=== PATIENT | female | born 1985 | race American Indian/Alaskan Native ===

== ENCOUNTER 2017-03-15 12:46 | Outpatient (CLI) | payer OTHER ==
--- NOTE | 2017-03-15 14:45 | Mammography Report ---
BILATERAL DIGITAL DIAGNOSTIC MAMMOGRAM with CAD and RIGHT BREAST ULTRASOUND: 03/15/17 CLINICAL: Right palpable breast lump. COMPARISON:None available. FINDINGS: The breasts are heterogeneously dense, which may obscures small masses. A right outer biopsy clip.No mass, suspicious architectural distortion or suspicious calcifications . No mammographic finding is identified at a palpable marker at the right inframammary fold. Ultrasound of the right breast was performed in the vicinity of a palpable skin lesion at 7 o'clock in the inframammary fold. It demonstrates a heterogeneous hypoechoic lesion within the skin measuring 7 x 4 x 5 mm. It demonstrates posterior enhancement. The skin is slightly thickened at the lesion. IMPRESSION: A benign 7 mm sebaceous cyst at the right inframammary fold. Otherwise negative studies. BI-RADS CATEGORY: 2 -- Benign RECOMMENDATION: Clinical follow-up and routine mammographic screening based on ACS guidelines. ACR BI-RADS MAMMOGRAPHIC CODES: 0 = Needs additional imaging evaluation; 1 = Negative; 2 = Benign; 3 = Probably benign; 4 = Suspicious; 5 = Malignant; 6 = Known biopsy-proven malignancy COMMENT: 1. Dense breast tissue, i.e., adenosis, fibrocystic changes, etc., may obscure an underlying neoplasm. 2. Approximately 10% of cancers are not detected with mammography. 3. A negative mammography report should not delay biopsy if a clinically suspicious mass is present. COMMENT: Patient follow-up letters are generated by our [employer] application.
== END 2017-03-15 12:47 | disposition home or self-care (01) ==
LOC: SPVWC 12:46
PROVIDERS: ATTEND Family Medicine
DX: N60.81 Other benign mammary dysplasias of right breast (principal); N63 Unspecified lump in breast; N64.89 Other specified disorders of breast
CPT/HCPCS: 76642; G0204; 77066

== ENCOUNTER 2021-07-01 07:49 | Observation (INO) | payer BC, OTHER ==
[2021-06-29 10:52] LABS: Mean Corpuscular HGB Conc 30 % (30-34); Red Blood Count 5.19 M/mm3 (3.65-5.03)
[2021-06-29 11:02] LABS: Hemoglobin 10.1 gm/dl (10.1-14.3); Mean Corpuscular Volume 66 fl (79-97); Red Cell Distribution Width 36.2 % (13.2-15.2)
[2021-06-29 11:10] LABS: Blood Urea Nitrogen 11 mg/dL (7-17); Calcium 9.3 mg/dL (8.4-10.2); Hemolysis Index 7
[2021-06-29 11:14] LABS: BUN/Creatinine Ratio 22
[2021-06-29 14:29] LABS: Anisocytosis 3+; Hypochromasia 1+; Platelet Estimate Consistent w Auto; Total Cells Counted 100
[2021-06-29 14:41] LABS: Platelet Count 244 K/mm3 (140-440)
--- NOTE | 2021-06-29 15:36 | Anesthesia Consultation ---
Anesthesia Consult and Med Hx Date of service: 07/01/21 - Airway Anesthetic Teeth Evaluation: Good ROM Head & Neck: Adequate Mental/Hyoid Distance: Adequate Mallampati Class: Class I Intubation Access Assessment: Good - Pulmonary Exam CTA: Yes - Cardiac Exam Cardiac Exam: RRR - Pre-Operative Health Status ASA Pre-Surgery Classification: ASA1 Proposed Anesthetic Plan: General Nerve Block: TAP - Pulmonary Hx Smoking: No Hx Respiratory Symptoms: No - Cardiovascular System Hx Hypertension: No - Central Nervous System CVA: No - Endocrine Hx Renal Disease: No Hx Liver Disease: No Hx Insulin Dependent Diabetes: No Hx Non-Insulin Dependent Diabetes: No Hx Thyroid Disease: No - Hematic Hx Anemia: Yes (Fe infusions; no hx transfusions) - Other Systems Hx Obesity: No - Additional Comments Anesthesia Medical History Comments: No hx complications w/ GA.
--- NOTE | 2021-06-29 23:39 | History and Physical Report ---
History of Present Illness Date of examination: 06/28/21 Chief complaint: Patient has been reassessed/reevaluated. H&P has been reviewed. No interval changes. This is a 35 years old female who presents with complains of menorrhagia, metrorrhagia, dysmenorrhea, abnormal periods and pelvic pain, but denies abnormal pap smears, dyspareunia, post-coital bleeding, abnormal vaginal discharge, vaginal burning/irritation, vaginal itching, breast mass or lumps, depression, anxiety, urinary symptoms, chest pain, palpitations, shortness of breath, leg swelling, back pain, abdominal pain, headaches and bowel problems. The symptoms began 4-6 months ago. She complains of mid-cycle spotting, heavy bleeding, dysmenorrhea and clotting, but denies irregular menses, lack of menses, history of ovarian cysts, history of thyroid disease, history of fibroids, history of PCOS, history of bleeding disorder, lightheadedness, fatigu e and cramping. Menses started at age 12. Interval between menses is 28 days and 30 days. Menstrual flow lasts 5 days and 7 days. Patient reports that for pain she uses ibuprofen without resolution of her symptoms.Patient's work up has included a transvaginal ultrasound which revealed multiple myomas. Patient's symptoms when present disrupts her normal daily activities. Conservative therapies have failed. Patient desires definitive treatment ] Vital Signs: Patient Profile: 35 Years Old Female LMP: 05/13/2021 Height: 63 inches Weight: 140 pounds BMI: 24.80 Temp: 97.8 degrees F BP sittin / 70 (left arm) Menstrual History: LMP (date): 05/13/2021 LMP - Character: heavy Menarche: 12 Menses interval: 28-30 days Menstrual flow: 8 days On BCP's at conception: no Current Method of Contraception: BTL Date of Last Mammogram: 2017 Date of Last Pap Smear: 05/25/2021 Past History : 5 Term Births: 3 Premature Births: 0 Living Children: 3 Para: 3 Mult. Births: 0 Prev : 3 Aborta: 2 Elect. Ab: 0 Spont. Ab: 2 Ectopics: 0 Current Allergies (reviewed today): BACTRIM (Critical) Past Medical History: Chronic back pain Left arm numbness(2020) Anemia Past Surgical History: umbilical hernia (2019) Axillary sweat gland (2012) Left Breast Biopsy: (2009) Cervical Cerclage x 3 (2004,2006,2012) (2004) (2006) with Tubal Ligation (2012) Vaginal repair of cervical fistula due scarring from cercalges(2012) D&C:x2 Family History Summary: Other Family Member - Has No Family History of Ovarvian Cancer - Entered On: 06/13/2021 Other Family Member - Has No Family History of Colon Cancer - Entered On: 06/13/2021 Other Family Member - Has No Family History of Breast Cancer - Entered On: 06/13 Other Family Member - Has Family History of Hypertension - Entered On: 06/13/2021 Other Family Member - Has Family History of Diabetes - Entered On: 06/13/2021 Other Family Member - Has Family History of Coronary Heart Disease - Entered On: 06/13/2021 Social History: Marital Status: Children: 3 Occupation: [employer] Smoking History: Patient has never smoked. 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 Denies fever, chills, sweats, anorexia, weakness, malaise, weight loss and sleep disorder. Complains of menorrhagia, pelvic pain and painful periods. Denies vaginal discharge, incontinence, dysuria, hematuria, urinary frequency, amenorrhea, abnormal vaginal bleeding, genital sores, decreased libido, painful sex, urinary urgency, hot flashes, vaginal dryness, vaginal itching and vaginal odor. CV Denies chest pains, palpitations, syncope, dyspnea on exertion, orthopnea, PND and peripheral edema. Resp Denies cough, dyspnea at rest, excessive sputum, hemoptysis, wheezing and pleurisy. GI Denies nausea, vomiting, diarrhea, constipation, change in bowel habits, abdominal pain, melena, hematochezia, jaundice, gas/bloating, indigestion/heartburn, dysphagia and odynophagia. Breast Denies left breast lump, right breast lump, nipple discharge, bloody discharge from nipple, breast pain, abnormal mammogram and breast enlargement. Psych History of present illness: See chief complaint Past History Past Medical History: other (SEE HPI FOR DETAILS) Social history: full code, other (SEE HPI FOR DETAILS) Family history: other (SEE HPI FOR DETAILS) Medications and Allergies Allergies Allergy/AdvReac Type Severity Reaction Status Date / Time BACTRIM-MAKES HER FEEL CRAZY AdvReac Severe Hives Uncoded 06/24/21 12:55 Home Medications Medication Instructions Recorded Confirmed Last Taken Type Advil 11/ Tylenol 4 tab PO PRN 06/24/21 Unknown History Ascorbic Acid [Vitamin C] 1,000 mg PO QDAY 06/24/21 06/24/21 Unknown History Cetirizine HCl [Cetirizine 5mg tab] 5 mg PO DAILY 06/24/21 06/24/21 Unknown H istory Cholecalciferol (Vitamin D3) 50 mcg PO DAILY 06/24/21 06/24/21 Unknown History [Vitamin D3] Cyanocobalamin (Vitamin B-12) 5,000 mcg PO DAILY 06/24/21 06/24/21 Unknown History [Vitamin B12] Iron 325 mg PO DAILY 06/24/21 06/24/21 Unknown History Active Meds: Active Medications Acetaminophen (Acetaminophen 500 Mg Tab) 1,000 mg PO PREOP SHANTELL Fentanyl (Fentanyl 100 Mcg/2 Ml Inj) 100 mcg IV ONCE PRN PRN Reason: sedation for nerve block Gabapentin (Gabapentin 300 Mg Cap) 300 mg PO PREOP NR Stop: 07/01/21 11:01 Cefazolin Sodium (Ancef/Sterile Water 2 Gm/20 Ml) 2 gm in 20 mls @ 80 mls/hr IV PREOP NR; Protocol Stop: 07/01/21 20:00 Lactated Ringer's (Lactated Ringers) 1,000 mls @ 100 mls/hr IV DIRECT SHANTELL Stop: 07/01/21 23:59 Midazolam HCl (Midazolam 2 Mg/2 Ml Inj) 2 mg IV PREOP NR Stop: 07/01/21 23:00 Scopolamine (Scopolamine Transdermal Patch 72 Hr) 1 each TD PREOP NR Stop: 07/01/21 23:00 Review of Systems Constitutional: other (SEE HPI FOR DETAILS) Exam - Physical Exam Narrative exam: HEENT: normocephalic, no lesions or deformities Skin no significant abnormal lesions or rashes Chest: respiratory effort normal, clear to auscultation Breasts: skin/areolae normal, no masses, no nipple discharge, no erythema/warm th/tenderness, and axillae normal. CV: regular, normal S1-S2, no murmur, no rub, no gallop Abdomen: normal bowel sounds, soft, nontender, no HSM Well healed pfannenstiel scar Neuro: no gross anomalities Extremities: no clubbing, cyanosis, or edema [employer]TER [employer] Exams Vulva/Vagina: No lesions, normal BUS, normal rugae Cervix: No lesions; no cervical motion tenderness Uterus: enlarged uterus 14 -16 weeks in size Adnexae: no masses or tenderness Rectovaginal: exam defered - Constitutional Vitals: Temp Pulse Resp BP Pulse Ox 98.3 F 76 20 140/73 99 06/29/21 09:30 06/29/21 09:30 06/29/21 09:30 06/29/21 09:30 06/29/21 09:30 Results - Labs CBC & Chem 7: 06/29/21 09:35 06/29/21 09:35 Labs: Abnormal lab results 06/29/21 06/29/21 Range/Units 09:35 09:35 RBC 5.19 H (3.65-5.03) M/mm3 MCV 66 L (79-97) fl MCH 20 L (28-32) pg RDW 36.2 H (13.2-15.2) % Seg Neuts % (Manual) 71.0 H (40.0-70.0) % Creatinine 0.5 L (0.6-1.2) mg/dL Assessment and Plan - Patient Problems (1) Intramural leiomyoma of uterus Current Visit: No Status: Acute Plan to address problem: Diagnosis explained to patient . Questions answered. Discussed with patient various medical, surgical and radiological therapies common for treatment including expectant management, myomectomy hysterectomy and uterine artery embolization Patient desires definitive treatment Patient desires hysterectomy Discussed risks and benefits of laparotomy, laparoscopy, vaginal and robotic assisted approaches for hysterectomies Patient desires robotic assisted total hysterectomy. Consent reviewed and signed . The risks and alternatives for this surgery were reviewed with the patient. Discuss the risks of the surgery including infection, bleeding possibly heavy enough to require a blood transfusion, possible damage to bowel, bladder or ureter. Patient understand that this surgery with make her sterile.Patient understands if her ovaries are removed she will become menopausal. Also if unable to complete robitcally a laparotomy may be required. Patient understands her risks of adjacent organ damage is increased due to her previous surgery(ies) Patient understands and desires to proceed. (2) Menorrhagia Current Visit: No Status: Acute Qualifiers: Menorrhagia type: with regular cycle Qualified Code(s): N92.0 - Excessive and frequent menstruation with regular cycle Plan to address problem: Probably secondary to # 1 (3) Dysmenorrhea Current Visit: No Status: Acute Plan to address problem: Probably secondary to # 1 (4) Anemia Current Visit: No Status: Acute Qualifiers: Iron deficiency anemia type: chronic blood loss Plan to address problem: Probably secondary to # 2 (5) Refusal of blood transfusions as patient is Bahai Current Visit: Yes Status: Chronic
[~2021-07-01 07:49] MED LIST: ACETAMINOPHEN 500 MG TAB PO SCH; GABAPENTIN 300 MG CAP PO NR; LACTATED RINGERS 1,000 ML IV SCH; MIDAZOLAM 2 MG/2 ML INJ IV NR; SCOPOLAMINE TRANSDERMAL PATCH 72 HR TD NR; fentaNYL 100 MCG/2 ML INJ IV PRN
[2021-07-01] MEDS ORDERED: ROCURONIUM 50 MG/5 ML INJ IV ONE ×2 (09:35→13:19)
[2021-07-01] MEDS ORDERED: dexAMETHasone 20 MG/5 ML VIAL ONE (09:35)
[2021-07-01] MEDS ORDERED: LIDOCAINE MPF (2%) 20 MG/1 ML VIAL 5 ML ONE (09:35)
[2021-07-01] MEDS ORDERED: ONDANSETRON 4 MG/2 ML INJ ONE (09:35)
[2021-07-01] MEDS ORDERED: HYDROmorphone 1 MG/1 ML INJ ONE ×2 (09:36→13:02)
[2021-07-01] MEDS ORDERED: propofoL 200 MG/20 ML VIAL IV ONE (09:36)
[2021-07-01] MEDS ORDERED: fentaNYL 100 MCG/2 ML INJ ONE (09:36)
[2021-07-01] MEDS ORDERED: BUPIVACAINE/PF (0.25%) 2.5 MG/ML 30 ML VIAL INFILTRATI ONE (10:32)
[2021-07-01] MEDS ORDERED: dexAMETHasone 4 MG/ML VIAL ONE (10:32)
[2021-07-01] MEDS ORDERED: HYDROmorphone 1 MG/1 ML INJ IV PRN (10:51)
--- NOTE | 2021-07-01 10:51 | Anesthesia Day of Surgery ---
Anesthesia Day of Surgery - Day of Surgery Patient Examined: Yes Patient H&P Reviewed: Yes Patient is NPO: Yes
[2021-07-01] MEDS ORDERED: oxyCODONE /ACETAMINOPHEN 5-325MG TAB PO PRN (11:00)
[2021-07-01] MEDS ORDERED: ONDANSETRON 4 MG/2 ML INJ IV PRN (11:00)
[2021-07-01] MEDS ORDERED: NEOMY 40 MG/POLYMYXIN B 200,000 UNITS/ML (GU) AMPULE IR ONE ×2 (11:02→12:05)
[2021-07-01] MEDS ORDERED: CITRIC ACID-SOD CITRATE 500 ML IV ONE (11:47)
[2021-07-01] MEDS ORDERED: PHENYLEPHRINE/NS 1,000 MCG/10 ML SYRINGE (OR USE) IV ONE (11:57)
[2021-07-01] MEDS ORDERED: ceFAZolin/Water 2 GM/20 ML 2 GM/20 ML SYRINGE IV NR (12:00)
[2021-07-01] MEDS ORDERED: SODIUM CHLORIDE 0.9% IRR 1,500 ML BOTTLE IR ONE (12:05)
[2021-07-01] MEDS ORDERED: SODIUM CHLORIDE 0.9% IRRIG SOLN 2000 ML IR ONE (12:05)
[2021-07-01] MEDS ORDERED: CITRIC ACID-SOD CITRATE SOLN 500 ML IV SOLN IV ONE (12:06)
[2021-07-01] MEDS ORDERED: KETOROLAC 30 MG/1 ML INJ ONE (13:20)
[2021-07-01] MEDS ORDERED: NEOSTIGMINE 10MG/10 ML INJ MDV ONE (13:35)
[2021-07-01] MEDS ORDERED: GLYCOPYRROLATE 0.4 MG/2 ML INJ ONE (13:35)
--- NOTE | 2021-07-01 14:40 | Operative Report ---
Operative Report Operative Report: Date of procedure: July 01, 2021 Pre-operative diagnosis: Symptomatic leiomyomata with menorrhalgia pelvic pain, dysmenorrhea and anemia Post-operative diagnosis: Same plus pelvic adhesive disease Procedure name(s):Robotic Assisted Total Hysterectomy with bilateral salpingectomy with lysis of adhesions Surgeon: Dipesh Sheikh MD Direct Support Worker: Jana Hamm MD Anesthesia: General EBL: 50 cc Complications: None Findings: Patient had extensive omental adhesions to anterior abdominal wall in the fundus of the uterus. Patient also with adhesion between anterior uterus and bladder. Patient normal-appearing fallopian tubes bilaterally with both of them interrupted midportion had a normal-appearing right ovary and patient also had a left ovary with a approximately 3 centimeters cyst Specimen(s): Uterus with bilateral fallopian tubes along with cervix Procedure: Patient was brought to the operating room where general anesthesia was induced without difficulty. Patient was placed in the dorsal lithotomy position. Prepped and draped in the usual sterile manner for robotic procedure. Torres catheter was placed without difficulty. Speculum was placed in the vagina. A medium V-Care Uterine manipulator was placed without difficulty. Attention was now switched to the patient's abdomen. A vertical supra-umbilicus incision was made with a scalpel. A 10-12 trocar was placed in this incision under direct visualization. Intra-abdominal placement was verified with no evidence of internal organ damage. The patient was insufflated approximately 3-1/2 L of CO2 gas. She was placed in Trendelenburg position. The patient pelvic findings were noted as above. Patient with thick omental adhesions obscuring the patient's pelvic findings. On the left side of the umbilical incision at about 8 cm, incisions were made for robotic trocar. The robotic trocar was placed under direct visualization with no evidence of internal organ damage. One 5 mm trocar was placed 2 fingerbreadths above the right iliac crest. A 5 mm camera was placed in the right lower quadrant trocar, where the dense omental adhesions were better visualized. Using both the lower right quadrant camera port and the midportion camera port the adhesions were taken down laparoscopically clear meghann jovanni to place the right robotic trocar under direct visualization no evidence of internal organ damage. The 10-12 trocar was removed and a Ricky Barajas laparoscopic port closure device was placed through this incision under direct visualization with no evidence of internal organ damage. The camera was then replaced into this port. At this time the patient was placed in extreme Trendelenburg. The da Lucian robot was then docked on the patient's left side. The trocars connected to the robot appropriately robotic instruments were placed under direct visualization no evidence of internal organ damage.. At this time I took my place under the robotic operating rice. Further lysis of adhesions were performed with robotic scissors and bipolar instruments. The adhesions were then freed and the patient pelvic anatomy could be clearly seen. Starting on the patient's right side the ureter was identified and found to be out of the operative field. Using the robotic vessel sealer the mesosalpinx under the fallopian tube were cauterized and cut starting from the distal end. Utero- ovarian complex was then cauterized and cut. This was followed by cauterizing and cutting the right fallopian tube and right round ligament. The broad ligament was then opened. The bladder flap was formed anteriorly. The posterior broad ligament was then excised. The uterine vessels were skeletonized. The ureter was clearly seen out of the operative field. The bladder was pushed away from the anterior uterus. The right uterine vessels were then cauterized and cut. Attention was then switched to the patient's left side. The same procedure was repeated on the left side with perform the salpingectomy followed by isolating the uterine vessels cauterized and cutting and completing the bladder flap from the left side. At this time the uterus was appearing very cyanotic. After inspecting the bladder flap to insured no evidence of bladder injury, the colpotomy was then started. Incision started at 6:00 until the V-Care could be seen. This incision was extended from 6:00 to 9:00. Then from 6:00 to 3:00. Then from 9:00 to 12:00. This incision was extended from 3:00 to 12:00. At this time colpotomy was complete with no evidence of adjacent organ damage. The assistant auto center manager remove the uterus from through the colpotomy site. The vaginal cuff was irrigated and cauterized and found to be hemostatic. The cuff was closed with roboticly using 0 V- Lock suture. This closure was hemostatic after irrigation and Bovie. All pedicles were inspected and found to be hemostatic. The ureters were identified bilaterally and found to be functioning normal. The patient had clear urine in the Torres catheter with no evidence of mixture with blood. Surgicel powder was placed on the cuff and pedicles for postoperative hemostasis . All instruments were then removed. The large trocar sites were closed in layers 2-0 Vicryl and 4-0 Monocryl. The smaller incisions were closed subcuticularly with 4-0 Monocryl. Dermabond was placed over the skin incisions. The patient tolerated procedure well. She was awakened in the operating room and accompanied to the recovery room in good condition.
--- NOTE | 2021-07-01 15:58 | Post Anesthesia Evaluation ---
- Post Anesthesia Evaluation Patient Participated: Yes Airway Patent: Yes Stable Respiratory Function: Yes Nausea/Vomiting: No Temp > 96.8F: Yes Pain Manageable: Yes Adequeate Hydration: Yes Anesthesia Complications: No
[2021-07-01] MEDS ORDERED: ACETAMINOPHEN 325 MG TAB PO PRN (16:19)
--- NOTE | 2021-07-01 18:21 | Event Note ---
Date: 07/01/21 Day of surgery. Discuss operative findings with patient and questions answered. Patient without fever. Patient does complain of some dizziness, nausea and she has not voided postoperatively as of yet. We will ambulate in halls this evening. Monitor urine output. We will continue routine postoperative care.
[2021-07-01] MEDS: ceFAZolin/NS 1 GM/50 ML 1 GM/50 ML BAG IV SCH (20:35)
[2021-07-01] MEDS ORDERED: ACETAMINOPHEN 325 MG TAB PO SCH (20:41)
[2021-07-01] MEDS ORDERED: SIMETHICONE 80 MG CHEW TAB PO PRN (20:45)
[2021-07-01] MEDS: D5W/LACTATED RINGERS 1,000 ML IV SCH (21:19)
[2021-07-01] MEDS: HYDROcodone/ACETAMINOPHEN 5-325 MG TAB PO PRN (21:25)
[2021-07-01] MEDS ORDERED: SODIUM CHLORIDE P/F VIAL 10 ML 10 ML ONE (22:59)
[2021-07-01] MEDS ORDERED: SODIUM CHLORIDE 0.9% P/F 10 ML VIAL IV SCH (23:00)
[2021-07-01] MEDS: KETOROLAC 30 MG/1 ML INJ IV SCH (23:02)
[2021-07-01] MEDS: PANTOPRAZOLE 40 MG INJ IV SCH (23:03)
[2021-07-01] MEDS: DOCUSATE SODIUM 100 MG CAP PO SCH (23:04)
[2021-07-01] MEDS ORDERED: ACETAMINOPHEN 500 MG TAB PO SCH (23:45)
[2021-07-02] MEDS: HYDROcodone/ACETAMINOPHEN 5-325 MG TAB PO PRN ×2 (03:19→09:14)
[2021-07-02] MEDS: ceFAZolin/NS 1 GM/50 ML 1 GM/50 ML BAG IV SCH (04:45)
[2021-07-02] MEDS: D5W/LACTATED RINGERS 1,000 ML IV SCH (05:23)
[2021-07-02] MEDS: KETOROLAC 30 MG/1 ML INJ IV SCH (05:23)
[2021-07-02 05:30] LABS: Hematocrit 29.8 % (30.3-42.9); Hemoglobin 9.1 gm/dl (10.1-14.3)
[2021-07-02] MEDS: PANTOPRAZOLE 40 MG INJ IV SCH (09:14)
[2021-07-02] MEDS: DOCUSATE SODIUM 100 MG CAP PO SCH (09:14)
--- NOTE | 2021-07-02 11:17 | Short Stay Summary ---
Short Stay Documentation Date of service: 07/01/21 Narrative H&P: See dictated history and physical - History Principal diagnosis: Symptomatic leiomyomata with menorrhalgia pain and dysmenorrhea also anemia Past Medical History: other (SEE HPI FOR DETAILS) Social history: full code, other (SEE HPI FOR DETAILS) - Allergies and Medications Current Medications: Allergies BACTRIM-MAKES HER FEEL CRAZY Adverse Reaction (Severe, Uncoded 06/24/21 12:55) Hives NAUSEA & VOMITING Home Medications Medication Instructions Recorded Confirmed Last Taken Type Advil 11/ Tylenol 4 tab PO PRN 06/24/21 Unknown History Ascorbic Acid [Vitamin C] 1,000 mg PO QDAY 06/24/21 06/24/21 Unknown History Cetirizine HCl [Cetirizine 5mg tab] 5 mg PO DAILY 06/24/21 06/24/21 Unknown History Cholecalciferol (Vitamin D3) 50 mcg PO DAILY 06/24/21 06/24/21 Unknown History [Vitamin D3] Cyanocobalamin (Vitamin B-12) 5,000 mcg PO DAILY 06/24/21 06/24/21 Unknown History [Vitamin B12] Iron 325 mg PO DAILY 06/24/21 06/24/21 Unknown History Ferrous Sulfate [Feosol 325 MG tab] 325 mg PO BID #60 tablet 07/01/21 Unknown Rx Ibuprofen [Motrin] 800 mg PO TID PRN #30 tablet 07/01/21 Unknown Rx oxyCODONE /ACETAMINOPHEN [Percocet 1 - 2 tab PO Q6HR PRN #20 tablet 07/01/21 Unknown Rx 5/325 mg] Tolterodine (Nf) [Detrol LA] 4 mg PO QDAY #14 capsule 07/02/21 Unknown Rx Active Medications Acetaminophen (Acetaminophen 500 Mg Tab) 1,000 mg PO Q6H [facility] Stop: 07/02/21 17:46 Last Admin: 07/01/21 23:00 Dose: Not Given Documented by: Hydrocodone Bitart/Acetaminophen (Hydrocodone/Acetaminophen 5-325 Mg Tab) 2 each PO Q6H PRN PRN Reason: Pain, Moderate (4-6) Last Admin: 07/02/21 09:14 Dose: 2 each Documented by: Docusate Sodium (Docusate Sodium 100 Mg Cap) 100 mg PO BID SHANTELL Last Admin: 07/02/21 09:14 Dose: 100 mg Documented by: Dextrose/Lactated Ringer's ([email or web address]) 1,000 mls @ 125 mls/hr IV DIRECT [facility] Last Admin: 07/02/21 05:23 Dose: 125 mls/hr Documented by: Pantoprazole Sodium (Pantoprazole 40 Mg Inj) 40 mg IV QDAY [facility] Last Admin: 07/02/21 09:14 Dose: 40 mg Documented by: Simethicone (Simethicone 80 Mg Chew Tab) 80 mg PO Q6H PRN PRN Reason: Gas pain Sodium Chloride (Sodium Chloride 0.9% P/F 10 Ml Vial) 10 ml IV DAILY SHANTELL - Brief post op/procedure progress note Date of procedure: 07/01/21 (See dictated operative note for details) Condition: stable - Hospital course Hospital course: Patient was admitted and underwent above procedure without complications. Postoperative course was complicated by urinary retention and nausea and vomiting. The symptoms resolved overnight. Patient was afebrile throughout her hospital stay. At time of discharge patient tolerating regular diet and has voided without any difficulty. Patient postop day 1 hematocrit was 29.8%. - Disposition Condition at discharge: Good Disposition: 01 HOME / SELF CARE / HOMELESS - Discharge Diagnoses (1) Intramural leiomyoma of uterus Status: Acute (2) Menorrhagia Status: Acute Qualifiers: Menorrhagia type: with regular cycle Qualified Code(s): N92.0 - Excessive and frequent menstruation with regular cycle (3) Dysmenorrhea Status: Acute (4) Anemia Status: Acute Qualifiers: Iron deficiency anemia type: chronic blood loss (5) Refusal of blood transfusions as patient is Congregational Status: Chronic Short Stay Discharge Plan Activity: advance as tolerated Diet: regular Wound: open to air Additional Instructions: Patient instructed no heavy lifting for 4 weeks. No intercourse for 8 weeks. Call office for fever, chills, nausea, vomiting or pain not controlled by pain medications. Ambulation is encouraged. Patient's call for heavy vaginal bleeding. Patient instructed to keep her scheduled post operative office appointment. Follow up with: ROSS APPIAH MD [Primary Care Provider] - 7 Days Prescriptions: Tolterodine (Nf) [Detrol LA] 4 mg PO QDAY #14 capsule Ferrous Sulfate [Feosol 325 MG tab] 325 mg PO BID #60 tablet Ibuprofen [Motrin] 800 mg PO TID PRN #30 tablet PRN Reason: Pain oxyCODONE /ACETAMINOPHEN [Percocet 5/325 mg] 1 - 2 tab PO Q6HR PRN #20 tablet PRN Reason: Pain
[2021-07-02 14:48] VITALS: BP 107/57
== END 2021-07-02 13:00 | disposition home or self-care (01) ==
LOC: OR 07:49 → OB 14:47
PROVIDERS: ADMIT Obstetrics & Gynecology; ATTEND Obstetrics & Gynecology
DX: N92.0 Excessive and frequent menstruation with regular cycle (principal); Z20.822 Contact with and (suspected) exposure to COVID-19; D25.1 Intramural leiomyoma of uterus; D64.9 Anemia, unspecified; N94.6 Dysmenorrhea, unspecified; Z98.890 Other specified postprocedural states; Z53.1 Procedure and treatment not carried out because of patient's decision for reasons of belief and group pressure; Z90.710 Acquired absence of both cervix and uterus; Z98.891 History of uterine scar from previous surgery
CPT/HCPCS: 36415; 58552; 64450; 80048; 84703; 85014; 85018; 85025; 88302; 88307; 96365; 96366; 96375; 96376; C9113; G0378; J0690; J1100; J1170; J1815; J1885; J2250; J2370; J2405; J2704; J2710; J3010; J3490; J7120; J7121; S2900; U0003; 85007; J7060